=== PATIENT | female | born 2000 | race Caucasian/White ===

== ENCOUNTER 2024-02-16 13:15 | Emergency (ER) | payer OTHER, SELFPAY ==
[2024-02-16 13:19] VITALS: BP 128/69; PULSE 72; TEMP 36.4; O2SAT 98; BMI 44.4
--- NOTE | 2024-02-16 13:53 | ED_ITS ---
HPI - Nausea/Vomiting/Diarrhea General Chief complaint: Abdominal Pain Stated complaint: NAUSEA/VOMITING Time Seen by Provider: 02/16/24 13:17 Source: patient Mode of arrival: walk-in History of Present Illness HPI Narrative: 24-year-old female presents for nausea and vomiting. She has been nauseous for a week and vomiting for 2 days. She told the nurse that she smokes marijuana. No hematemesis or fever and she has not had any known ill contacts. She is not suspicious that she is . She has not had a fever. Related Data Home Medications ?Medication ?Instructions ?Recorded ?Confirmed doxycycline hyclate 100 mg tablet 100 mg PO Q24H 02/16/24 02/16/24 escitalopram oxalate 20 mg tablet 20 mg 02/16/24 montelukast 10 mg tablet 10 mg PO DAILY 02/16/24 02/16/24 Previous Rx's ?Medication ?Instructions ?Recorded ciprofloxacin HCl 500 mg tablet 500 mg PO Q12H #20 tabs 02/16/24 (Cipro) hydrocodone 5 mg-acetaminophen 325 1 tab PO Q6H PRN pain 5 days #20 02/16/24 mg tablet tabs metronidazole 500 mg tablet 500 mg PO TID #30 tabs 02/16/24 ondansetron 4 mg disintegrating 4 mg PO Q6H PRN nausea and 02/16/24 tablet vomiting #20 tabs Allergies Allergy/AdvReac Type Severity Reaction Status Date / Time pollen extracts AdvReac Mild Verified 02/16/24 13:18 Review of Systems ROS Narrative A ten point review of systems is negative except as noted above. Exam Narrative Exam Narrative: Nurses note and vital signs reviewed and patient is not hypoxic. General: The patient appears well and in no apparent distress. Patient is resting comfortably on cart. Skin: Warm, dry, no pallor noted. There is no rash noted. Head: Normocephalic, atraumatic Eye: Normal conjunctiva, no drainage Ears, Nose, Mouth, and Throat: oral mucosa is moist. Nares patent. Cardiovascular: Regular Rate and Rhythm Respiratory: Patient is in no distress, no accessory muscle use, lungs are clear to auscultation, no wheezing, rales or rhonchi Back: non-tender GI: Soft and nontender Musculoskeletal: The patient has no evidence of calf tenderness, no pitting edema, symmetrical pulses noted bilaterally Neurological: A&O, normal speech Psychiatric: Cooperative Constitutional Vital Signs, click to edit/add: Last Vital Signs Temp 97.6 F 02/16/24 13:19 Pulse 72 02/16/24 13:19 Resp 18 02/16/24 13:19 BP 128/69 02/16/24 13:19 Pulse Ox 98 02/16/24 13:19 O2 Del Method Room Air 02/16/24 13:19 Course Vital Signs Vital signs: Vital Signs Temperature 97.6 F 02/16/24 13:19 Pulse Rate 72 02/16/24 13:19 Respiratory Rate 18 02/16/24 13:19 Blood Pressure 128/69 02/16/24 13:19 Pulse Oximetry 98 02/16/24 13:19 Oxygen Delivery Method Room Air 02/16/24 13:19 Temperature 97.6 F 02/16/24 13:19 Pulse Rate 72 02/16/24 13:19 Respiratory Rate 18 02/16/24 13:19 Blood Pressure 128/69 02/16/24 13:19 Pulse Oximetry 98 02/16/24 13:19 Oxygen Delivery Method Room Air 02/16/24 13:19 MDM - Nausea/Vomiting/Diarrhea MDM Narrative Medical decision making narrative: WBC is elevated at 17,[address] scan suggest the possibility of colitis. She will be prescribed Cipro and Flagyl as well as Zofran and [place] and will follow- up with her physician. Treatment diagnosis and follow-up were discussed with the patient and her mother. Differential Diagnosis Differential diagnosis: Likely food poisoning, gastroenteritis, dehydration and other (Colitis, diverticulitis) Lab Data Attestation: I reviewed the patient's lab results. Labs: Lab Results 02/16/24 02/16/24 Range/Units 14:20 15:12 WBC 17.6 H (4.0-11.0) 10^3/uL RBC 4.79 (4.20-5.40) 10^6/uL Hgb 14.4 (12.0-16.0) g/dL Hct 41.4 (36.0-48.0) % MCV 86.4 (81.0-99.0) fL MCH 30.1 (26.7-34.0) pg MCHC 34.8 (29.9-35.2) g/dL RDW 12.7 (11.0-15.0) % Plt Count 413 (150-450) 10^3/uL MPV 9.4 L (9.5-13.5) fL Seg Neuts % (Manual) 78.0 Lymphocytes % (Manual) 17.0 L (20.5-60.0) % Monocytes % (Manual) 5.0 (1.7-12.0) % Eosinophils % (Manual) 0.0 L (0.9-7.0) % Basophils % (Manual) 0.0 L (0.2-2.0) % Neutrophils # (Manual) 13.72 H (1.4-6.5) 10^3/uL Lymphocytes # (Manual) 2.99 (1.20-3.80) 10^3/uL Monocytes # (Manual) 0.88 H (0.30-0.80) 10^3/uL Eosinophils # (Manual) 0.00 (0.00-0.70) 10^3/uL Basophils # (Manual) 0.00 (0.00-0.10) 10^3/uL Sodium 139 (136-145) mmol/L Potassium 3.2 L (3.5-5.1) mmol/L Chloride 101 (98-107) mmol/L Carbon Dioxide 20.3 L (21.0-32.0) mmol/L Anion Gap 20.9 BUN 12.0 (7.0-18.0) mg/dL Creatinine 0.92 (0.55-1.02) mg/dL Est GFR ( Amer) >60 (>=60) Est GFR (Non-Af Amer) >60 (>=60) BUN/Creatinine Ratio 13.0 Glucose 134 H (74-106) mg/dL Calcium 9.9 (8.5-10.1) mg/dL Serum HCG, Qual Negative (NEGATIVE) Urine Color Yellow (YELLOW) Urine Clarity Clear (CLEAR) Urine pH 7.5 (5.0-9.0) Ur Specific [place] 1.025 (1.005-1.025) Urine Protein Trace (NEG/TRACE) mg/dL Urine Glucose (UA) Negative (NEGATIVE) mg/dL Urine Ketones >=80 A (NEGATIVE) mg/dL Urine Occult Blood Negative (NEGATIVE) Urine Nitrite Negative (NEGATIVE) Urine Bilirubin Negative (NEGATIVE) Urine Urobilinogen 0.2 (0.2-1.0) EU/dL Ur Leukocyte Esterase Negative (NEGATIVE) Urine RBC 0-2 (0-2) #/HPF Urine WBC 2-5 A (NONE SEEN) #/HPF Ur Squamous Epith Cells Moderate A (NONE/RARE) #/LPF Urine Crystals None seen (None Seen) #/HPF Urine Bacteria Trace A (NONE SEEN) #/HPF Urine Casts None seen (NONE SEEN) #/LPF Urine Mucus Trace A (NONE SEEN) Urine Opiates Screen Negative (NEGATIVE) Ur Buprenorphine Scrn Negative (NEGATIVE) Ur Oxycodone Screen Negative (NEGATIVE) Urine Methadone Screen Negative (NEGATIVE) Ur Barbiturates Screen Negative (NEGATIVE) U Tricyclic Antidepress Negative (NEGATIVE) Ur Phencyclidine Scrn Negative (NEGATIVE) Ur Amphetamines Screen Negative (NEGATIVE) U Methamphetamines Scrn Negative (NEGATIVE) U Benzodiazepines Scrn Negative (NEGATIVE) Urine Cocaine Screen Negative (NEGATIVE) U Cannabinoids Screen Positive A (NEGATIVE) Imaging Data CT scan - abdomen: Radiologist's impression: ITS Impressions Abdomen/Pelvis CT 02/16/24 15:15 IMPRESSION: 1. Mild wall thickening of the nondistended colon throughout its length; incidental secondary to lack of distention versus mild colitis. 2. No additional suspicious findings to account for patient's symptoms. Electronically authenticated by: MECCA VALLE Date: 02/16/2024 16:16 Discharge Plan Discharge Stand Alone Forms: Portal Instructions Chief Complaint: Abdominal Pain Clinical Impression: Colitis Patient Disposition: Home, Self-Care Time of Disposition Decision: 16:52 Condition: Good Mode of Transportation: Private Vehicle Prescriptions / Home Meds: New ciprofloxacin HCl [Cipro] 500 mg tablet 500 mg PO Q12H Qty: 20 0RF hydrocodone-acetaminophen 5-325 mg tablet 1 tab PO Q6H PRN (Reason: pain) 5 Days Qty: 20 0RF metronidazole 500 mg tablet 500 mg PO TID Qty: 30 0RF ondansetron 4 mg tablet,disintegrating 4 mg PO Q6H PRN (Reason: nausea and vomiting) Qty: 20 0RF No Action escitalopram oxalate 20 mg tablet 20 mg doxycycline hyclate 100 mg tablet 100 mg PO Q24H montelukast 10 mg tablet 10 mg PO DAILY Print Language: Iranian Instructions: Colitis (ED) Referrals: Physician,Non-Staff, MD [Primary Care Provider] - 1 week
[2024-02-16] MEDS: ONDANSETRON PF 4 MG/2 ML VIAL IV (14:21)
[2024-02-16] MEDS: 0.9 % SODIUM CHLORIDE 1,000 ML 1000 ML IV (14:21)
[2024-02-16 14:34] LABS: Hematocrit 41.4 % (36.0-48.0); Hemoglobin 14.4 g/dL (12.0-16.0); Mean Corpuscular HGB Conc 34.8 g/dL (29.9-35.2); Mean Corpuscular Hemoglobin 30.1 pg (26.7-34.0); Mean Corpuscular Volume 86.4 fL (81.0-99.0); Mean Platelet Volume 9.4 fL (9.5-13.5); Platelet Count 413 10^3/uL (150-450); Red Blood Count 4.79 10^6/uL (4.20-5.40); Red Cell Distribution Width 12.7 % (11.0-15.0); White Blood Count 17.6 10^3/uL (4.0-11.0)
[2024-02-16 14:36] LABS: Anion Gap 20.9; Calcium 9.9 mg/dL (8.5-10.1); Carbon Dioxide 20.3 mmol/L (21.0-32.0); Chloride 101 mmol/L (98-107); Estimated GFR (African America >60 (>=60); Estimated GFR (Non-African Ame >60 (>=60); Glucose 134 mg/dL (74-106); Potassium 3.2 mmol/L (3.5-5.1); Sodium 139 mmol/L (136-145)
[2024-02-16 14:37] LABS: HCG Qualitative NEGATIVE (NEGATIVE)
--- NOTE | 2024-02-16 15:15 | CT_ITS ---
The [address] [address] Patient Name: HEIDI DUENAS MRN: [id number] date: 2000 Sex: F Assigned Patient Location: ER Current Patient Location: ER Accession/Order Number: [id number] Exam Date: 02/16/2024 15:46 Report Date: 02/16/2024 16:16 At the request of: LONG ROSA Procedure: CT abdomen pelvis w con EXAMINATION: CT abdomen pelvis w con HISTORY: abd pain , nausea, vomiting, mid abdominal pain COMPARISON: No relevant comparison available. TECHNIQUE: Axial, Coronal, and Sagittal images were obtained without and/or with IV contrast as indicated by examination type. Dose reduction techniques were achieved by using automated exposure control and/or adjustment of mA and/or kV according to patient size and/or use of iterative reconstruction technique. FINDINGS: LUNG BASES: No visible pulmonary or pleural disease. LIVER: No enlargement, atrophy, suspicious density, or significant focal lesion. BILIARY: No dilatation or calcification. PANCREAS: No lesion, fluid collection, or abnormal duct dilatation. SPLEEN: No enlargement or focal lesion. ADRENALS: No mass or enlargement. KIDNEYS: No mass, obstruction, or calcification. BOWEL/MESENTERY: Mild wall thickening of the nondistended colon throughout its length without surrounding inflammatory changes. Unremarkable stomach and small bowel. Normal appendix. AORTA/VASCULAR: No aneurysm or dissection. RETROPERITONEUM: No mass or adenopathy. LYMPH NODES: No adenopathy. URINARY BLADDER: No visible focal wall thickening, lesion, or calculus. PELVIC ORGANS: No visible mass. Pelvic organs appropriate for patient age. ABDOMINAL WALL: No mass or hernia. BONES: No bony lesion or fracture. OTHER: Negative. CT/CT abdomen pelvis w con IMPRESSION: 1. Mild wall thickening of the nondistended colon throughout its length; incidental secondary to lack of distention versus mild colitis. 2. No additional suspicious findings to account for patient's symptoms. Electronically authenticated by: MECCA VALLE Date: 02/16/2024 16:16
[2024-02-16 15:26] LABS: Bilirubin Urine NEGATIVE (NEGATIVE); Blood Urine NEGATIVE (NEGATIVE); Clarity Urine CLEAR (CLEAR); Color Urine YELLOW (YELLOW); Glucose Urine UA NEGATIVE (NEGATIVE); Ketones Urine >=80 mg/dL (NEGATIVE); Leukocyte Esterase Urine NEGATIVE (NEGATIVE); Nitrite Urine NEGATIVE (NEGATIVE); Protein Urine TRACE mg/dL (NEG/TRACE); Specific Gravity Urine 1.025 (1.005-1.025); Urobilinogen Urine 0.2 EU/dL (0.2-1.0); pH Urine 7.5 (5.0-9.0)
[2024-02-16 15:31] LABS: Lymphocytes Absolute Manual 2.99 10^3/uL (1.20-3.80); Monocytes Absolute Manual 0.88 10^3/uL (0.30-0.80); Segmented Neut Absolute Manual 13.72 10^3/uL (1.4-6.5)
[2024-02-16 15:35] LABS: Bacteria Urine TRACE #/HPF (NONE SEEN); Cast Seen? NONE SEEN #/LPF (NONE SEEN); Crystals Seen? None Seen #/HPF (None Seen); Mucus Urine TRACE (NONE SEEN); RBC Urine 0-2 #/HPF (0-2); Squamous Epithelial Cell Urine MODERATE #/LPF (NONE/RARE)
[2024-02-16 15:48] LABS: Amphetamine Screen Urine NEGATIVE (NEGATIVE); Barbiturates Screen Urine NEGATIVE (NEGATIVE); Benzodiazepines Screen Urine NEGATIVE (NEGATIVE); Buprenorphine Screen Urine NEGATIVE (NEGATIVE); Cannabinoid Screen Urine POSITIVE (NEGATIVE); Cocaine Screen Urine NEGATIVE (NEGATIVE); Methadone Screen Urine NEGATIVE (NEGATIVE); Methamphetamines Screen Urine NEGATIVE (NEGATIVE); Opiate Screen Urine NEGATIVE (NEGATIVE); Oxycodone Screen Urine NEGATIVE (NEGATIVE); Phencyclidine Screen Urine NEGATIVE (NEGATIVE); Tricyclic Antidepressant Urine NEGATIVE (NEGATIVE)
[2024-02-16] MEDS: KETOROLAC TROMETHAMINE 30 MG/ML VIAL IVP (16:09)
== END 2024-02-16 17:02 | disposition home or self-care (01) ==
PROVIDERS: Emergency Provider Emergency Medicine; Family Provider Family Medicine
DX: K52.9 Noninfective gastroenteritis and colitis, unspecified (principal); F12.90 Cannabis use, unspecified, uncomplicated; Z79.899 Other long term (current) drug therapy
CPT/HCPCS: 36415; 74177; 80048; 80307; 81001; 84703; 85007; 85027; 96361; 96374; 96375; 99285; Q9967